=== PATIENT | female | born 1995 | race Two or more races ===

== ENCOUNTER 2025-08-29 13:57 | Emergency (ER) | payer BC ==
[~2025-08-29] VITALS: Ht 180.3 cm; Wt 86.2 kg
[2025-08-29] MEDS ORDERED: WELLBUTRIN SR100 MG (14:13)
[2025-08-29] MEDS ORDERED: CEFTRIAXONE SODIUM 1,000 MG VIAL IM STA (15:25)
[2025-08-29] MEDS ORDERED: KETOROLAC TROMETHAMINE 15 MG VIAL IM STA (15:25)
[2025-08-29] MEDS ORDERED: INTESTINEX680 M1 PO (19:05)
[2025-08-29] MEDS ORDERED: AMOX-CLAV 875-1 EACH PO (19:05)
[2025-08-29] MEDS ORDERED: NABUMETONE500 MG PO (19:05)
== END 2025-08-29 20:01 | disposition home or self-care (01) ==
LOC: ER 13:57
DX: S51.022A Laceration with foreign body of left elbow, initial encounter (principal); W18.39XA Other fall on same level, initial encounter; Y93.89 Activity, other specified; Y92.830 Public park as the place of occurrence of the external cause; M25.522 Pain in left elbow